=== PATIENT | female | born 1985 | race Caucasian/White ===

== ENCOUNTER 2018-04-05 09:06 | Day surgery (SDC) | payer BC ==
[~2018-04-05 09:06] MED LIST: Lactated Ringers 1,000 ML IV SCH
[2018-04-05] MEDS ORDERED: SUBLIMAZE 100 MCG/2 ML IV ONE (09:07)
[2018-04-05] MEDS ORDERED: DIPRIVAN 200 MG/20 ML IV ONE (09:07)
[2018-04-05] MEDS ORDERED: Versed 2 MG/2 ML Injection IV ONE (09:07)
[2018-04-05] MEDS ORDERED: Lactated Ringers 1,000 ML IV ONE (09:19)
[2018-04-05] MEDS ORDERED: Sensorcaine 0.25% 10 ML ONE (09:22)
[2018-04-05] MEDS ORDERED: Lactated Ringers 0 ML IV ONE (09:23)
[2018-04-05] MEDS ORDERED: XYLOCAINE 1% HCL 20 ML MDV ONE (09:26)
--- NOTE | 2018-04-05 09:54 | HP ---
DATE OF SURGERY: 04/05/2018 HISTORY OF PRESENT ILLNESS: The patient is a 33 year-old who has had a nodule or cyst going on for five years now increasing in size, looks infected now, warmth, now increasing in size. She desires excision. PAST MEDICAL HISTORY: She denies any chronic illnesses although she does take Adderall PRN. PAST SURGICAL HISTORY: [place] teeth. Breast reduction in the past. Mucocele on her lip. MEDICATIONS: ALLERGIES: NKDA. FAMILY HISTORY: Negative. SOCIAL HISTORY: No smoking. Rare alcohol use. REVIEW OF SYSTEMS: Twelve systems reviewed per admission assessment. No chest pain or palpitations other systems negative or noncontributory as above and per preadmission questionnaire. PHYSICAL EXAMINATION: GENERAL: No acute distress. HEENT: Sclerae nonicteric. NECK: No JVD. Cyst or nodule right side of her neck. CHEST: Equal excursion, nonlabored breathing. CVS: Regular rate and rhythm. ABDOMEN: Soft. No peritoneal signs. EXTREMITIES: No significant edema. NEURO: Alert, oriented, moving extremities symmetrically. No gross motor deficits noted. IMPRESSION: Cyst or nodule on the right side of her neck. She desires excision. Risks and benefits explained in detail including but not limited to bleeding or infection, risk of wound dehiscence possibly requiring packing, likely what we excise will not recur once she heals the wound but she could get a similar cyst or nodule adjacent to or elsewhere on her neck or body. She understands the general risk of anesthesia sedation, deep venous thrombosis, pulmonary embolism or pneumonia but not limited to. We will proceed with excisional biopsy of right cyst or nodule as an outpatient.
[2018-04-05 13:31] VITALS: O2SAT 100
[2018-04-05 14:04] VITALS: BP 131/65; PULSE 80
--- NOTE | 2018-04-05 14:53 | OP ---
SURGERY DATE/TIME: 04/05/2018 1229 PREOPERATIVE DIAGNOSIS: Enlarging neck cyst or nodule. POSTOPERATIVE DIAGNOSIS: Enlarging neck cyst or nodule. PROCEDURE: Excisional biopsy right neck cyst approximately 1.2 cm with margins with intermediate closure. SURGEON: Dr. Montana Jay. SAP HANA DEVELOPER: Clarence Barry, Medical Student III. ANESTHESIA: MAC with local 1% lidocaine. ESTIMATED BLOOD LOSS: Minimal. INDICATIONS: As noted above. Risks and benefits explained in detail and not limited to and consent obtained. The site is confirmed in the preoperative holding area. DESCRIPTION OF PROCEDURE AND FINDINGS: He is taken to the operating room. MAC anesthesia introduced. The neck is prepped and draped in usual sterile fashion. After official time out and no disagreement with planned procedure, including the small rim of skin over the top which is felt to possibly contact a pit. Dissection is carried down circumferentially on what appeared to be an epidural inclusion cyst dissecting it down to the underlying subcutaneous tissue and fascia. Slowly and carefully shelled out and measured approximately 1.2 cm. The underlying tissue appeared fine. There did not appear to be any evidence of any cyst wall or cyst material left in the wound. Hemostasis controlled with some pinpoint cautery. The wound is then closed in intermediate fashion with interrupted 4-0 Vicryl closing the subcu and the dermis. Skin closed with running subcuticular 5-0 Prolene to the fascia. Steri-Strips and sterile dressing applied. The patient tolerated the procedure well. There were no immediate complications. Findings discussed with the family in the waiting area. She was transferred to recovery in stable condition.
== END 2018-04-05 14:10 | disposition home or self-care (01) ==
LOC: SDC 09:06
PROVIDERS: ATTEND Surgery
DX: L72.0 Epidermal cyst (principal); R22.1 Localized swelling, mass and lump, neck; R20.8 Other disturbances of skin sensation
CPT/HCPCS: 84703; 94250; J2250; J2704; J3010

== ENCOUNTER 2019-04-12 15:38 | Emergency (ER) | payer BC, OTHER ==
--- NOTE | 2019-04-12 16:16 | ERPHSYRPT ---
- History of Present Illness Time Seen by Provider: 04/12/19 16:00 Source: patient, family Patient Subjective Stated Complaint: states was making a home visit today through [facility] and was bit by a dog on left hip. Triage Nursing Assessment: ambulated to room per self. skin w/d, color normal, resp easy. has abrasion to left hip with small bite marco antonio. no bleeding noted. Physician History: 34 y/o white female whose tetanus is utd was bitten by a dog whose immunization status is unknown. 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 Timing/Duration: today Quality: painful (mildly) Location: extremities (left upper outer thigh) Possible Causes: other (dogbite) Allergies/Adverse Reactions: No Known Drug Allergies Allergy (Verified 04/12/19 15:56) Home Medications: Dextroamphetamine/Amphetamine [Adderall 20 mg Tablet] 20 mg PO DAILY PRN PRN [History] Hx Tetanus, Diphtheria Vaccination/Date Given: Yes Hx Influenza Vaccination/Date Given: Yes Hx Pneumococcal Vaccination/Date Given: No - Review of Systems Constitutional: No Symptoms Eyes: No Symptoms Ears, Nose, & Throat: No Symptoms Respiratory: No Symptoms Cardiac: No Symptoms Abdominal/Gastrointestinal: No Symptoms Genitourinary Symptoms: No Symptoms Musculoskeletal: No Symptoms Skin: Other (superficial dog bite to left upper outer thigh ) Neurological: No Symptoms Psychological: No Symptoms Endocrine: No Symptoms Hematologic/Lymphatic: No Symptoms Immunological/Allergic: No Symptoms All Other Systems: Reviewed and Negative - Past Medical History Pertinent Past Medical History: Yes Neurological History: No Pertinent History ENT History: No Pertinent History Cardiac History: No Pertinent History Respiratory History: Other Endocrine Medical History: No Pertinent History Musculoskeletal History: No Pertinent History GI Medical History: GERD History: No Pertinent History Psycho-Social History: Attention Deficit Disorder Female Reproductive Disorders: No Pertinent History Other Medical History: excercise induced asthma in the past. seasonal allergies - Past Surgical History Past Surgical History: Yes Neuro Surgical History: No Pertinent History Cardiac: No Pertinent History Respiratory: No Pertinent History Gastrointestinal: No Pertinent History, Colon Resection Genitourinary: No Pertinent History Musculoskeletal: No Pertinent History Female Surgical History: No Pertinent History Other Surgical History: breast reduction 2 years ago. wisdom teeth. mucus seal to lower lip - Social History Smoking Status: Never smoker Exposure to second hand smoke: No Drug Use: none Patient Lives Alone: No - Female History Hx Now: No - Nursing Vital Signs Nursing Vital Signs: Initial Vital Signs Temperature 98.8 F 04/12/19 15:42 Pulse Rate 92 H 04/12/19 15:42 Respiratory Rate 16 04/12/19 15:42 Blood Pressure 123/61 04/12/19 15:42 O2 Sat by Pulse Oximetry 95 04/12/19 15:42 Pain Scale Pain Intensity 3 - Physical Exam General Appearance: no apparent distress, alert Eye Exam: PERRL/EOMI, eyes nml inspection Ears, Nose, Throat Exam: normal ENT inspection, moist mucous membranes Neck Exam: normal inspection, non-tender, supple, full range of motion Respiratory Exam: normal breath sounds, lungs clear, airway intact, No chest tenderness, No respiratory distress Gastrointestinal/Abdomen Exam: No tenderness Pelvic Exam: not done Rectal Exam: not done Extremity Exam: normal range of motion, pelvis stable Neurologic Exam: alert, oriented x 3, cooperative, 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 no ointments lotions or creams. follow up with [facility] tomorrow for further instructions, including finding out immunization status of dog and need for rabies vaccination. Prescriptions: Amoxicillin/Potassium Clav [Augmentin 500-125 Tablet] 1 each PO BID #10 tablet
[2019-04-12 16:38] VITALS: BP 113/77; PULSE 84; O2SAT 99
== END 2019-04-12 16:38 | disposition home or self-care (01) ==
LOC: ED 15:38
DX: S70.312A Abrasion, left thigh, initial encounter (principal); S71.132A Puncture wound without foreign body, left thigh, initial encounter; W54.0XXA Bitten by dog, initial encounter
CPT/HCPCS: 99283

== ENCOUNTER 2020-12-24 10:02 | Day surgery (SDC) | payer BC ==
--- NOTE | 2020-12-24 08:27 | HP ---
DATE OF SURGERY: 12/24/2020 HISTORY OF PRESENT ILLNESS: The patient is a 35 year-old with dull ache right side and a little bit of nausea. Ultrasound showed some sludge. It was felt she had acute exacerbation of chronic cholecystitis, biliary colic and symptomatic biliary sludge. Hepatitis screen was negative. She just had slight elevation in her liver function test. There is question that she is passing sludge. PAST MEDICAL HISTORY: She denies any chronic illnesses. PAST SURGICAL HISTORY: Cyst or node biopsy in the past in her neck. MEDICATIONS: Includes Adderall, Tri-Sprintec. ALLERGIES: NKDA. FAMILY HISTORY: Hypertension. Diabetes. SOCIAL HISTORY: Denies smoking. REVIEW OF SYSTEMS: Fourteen systems reviewed per preadmission questionnaire. PHYSICAL EXAMINATION: GENERAL: No acute distress. HEENT: Sclerae nonicteric. NECK: No JVD. CHEST: Equal excursion, nonlabored breathing. CVS: Regular rate and rhythm. ABDOMEN: Soft. No peritoneal signs. She had some tenderness in the right side. EXTREMITIES: No significant edema. NEURO: Alert, oriented, moving extremities symmetrically. PSYCH: Appropriate mood and affect. IMPRESSION: Symptomatic acute exacerbation of biliary colic, chronic cholecystitis, biliary sludge, possibly passing sludge, possibly causing slight elevation of liver function test. I feel she will benefit from laparoscopic cholecystectomy to reduce the risk of future problems. Risks and benefits explained in detail including but not limited to bleeding or infection, risk of trocar injury or hernia, risk of bowel, bladder or blood vessel injury, risk of bile leak, bile duct injury, retained stone or sludge possibly requiring further procedure either open or ERCP, general risk of anesthesia, deep venous thrombosis, pulmonary embolism, pneumonia, perioperative risk of aches, pains, bloating, constipation and/or loose stools possibly even chronic in nature. She understands possibly this procedure may not improve her symptoms and se may need further work up and/or testing, endoscopy, other studies or procedures. She understands and agrees to the planned procedure, will proceed with outpatient laparoscopic cholecystectomy with possible open.
[~2020-12-24 10:02] MED LIST changes: +Lactated Ringers 1,000 ML IV ONE; +MEFOXIN 2 GM PREMIX** 2 GM/50 ML ML IV SCH; +Sensorcaine 0.25% 10 ML ONE
[2020-12-24] MEDS ORDERED: MEFOXIN 2 GM PREMIX** 2 GM/50 ML ML IV ONE (10:10)
[2020-12-24] MEDS ORDERED: Lactated Ringers 1,000 ML IV ONE (10:11)
[2020-12-24] MEDS ORDERED: TORAdol 30 mg Injection ONE (10:17)
[2020-12-24] MEDS ORDERED: BRIDION 200MG/2ML IV ONE (10:17)
[2020-12-24] MEDS ORDERED: SUBLIMAZE 100 MCG/2 ML ONE ×2 (10:17→12:37)
[2020-12-24] MEDS ORDERED: Zemuron 100 MG/10 ML ONE (10:17)
[2020-12-24] MEDS ORDERED: Zofran 4 MG/2 ML VIAL ONE (10:17)
[2020-12-24] MEDS ORDERED: DIPRIVAN 200 MG/20 ML IV ONE (10:17)
[2020-12-24] MEDS ORDERED: Xylocaine-Mpf 2% 5 Ml Vial ONE (10:17)
[2020-12-24] MEDS ORDERED: Decadron 4 MG INJ ONE (10:17)
[2020-12-24] MEDS ORDERED: Compazine 10 MG/2 ML ONE (13:10)
[2020-12-24 13:36] VITALS: O2SAT 100
[2020-12-24] MEDS ORDERED: NORCO 5/325 MG PO PRN (14:01)
[2020-12-24 15:30] VITALS: BP 122/78; PULSE 80
--- NOTE | 2020-12-25 08:11 | OP ---
SURGERY DATE/TIME: 12/24/2020 1200 PREOPERATIVE DIAGNOSIS: Acute exacerbation of chronic cholecystitis, symptomatic biliary sludge. POSTOPERATIVE DIAGNOSIS: Acute exacerbation of chronic cholecystitis, symptomatic biliary sludge. PROCEDURE: Laparoscopic cholecystectomy. SURGEON: Dr. Montana Jay. INVESTMENT SALES ASSISTANT: Richmond Amaya, medical student III. ANESTHESIA: General. ESTIMATED BLOOD LOSS: Minimal. INDICATIONS: As noted above. Risks and benefits explained in detail but not limited to and consent obtained. DESCRIPTION OF PROCEDURE AND FINDINGS: The patient was taken to the operating room. General anesthesia induced. Abdomen prepped and draped in the usual sterile fashion. After official time out and no disagreement with planned procedure, a transverse incision made at the infraumbilical area as she had a supraumbilical piercing. Fascia grasped and pulled upward. Veress needle inserted and tested with saline. Pneumoperitoneum accomplished insufflating opening pressure of 0-15. A 5 mm bladeless port and camera inserted without difficulty in the right upper quadrant. There is no evidence of any intra-abdominal injury secondary to trocar insertion. A small amount CO2 insufflated in the extra peritoneal space. There were no issues with the Veress needle placement intra-abdominally. The 10/11 port was placed in the infraumbilical side and another right upper quadrant 5 mm port as well as 5 mm epigastric port. The gallbladder grasped and retracted over the edge of the liver. It had some chronic inflammatory reaction. Dissection carried posterior, lateral to anterior fashion. Slowly and carefully cystic duct and infundibular area slowly and carefully well skeletonized until the critical view obtained both anteriorly and posteriorly. Once this was accomplished the cystic duct and cystic artery were clipped x3 and divided in the usual fashion. Gallbladder was vascular requiring clipping additional oozing side branches off the cystic artery/cystic vein directly on the gallbladder wall as necessary. Gallbladder is slowly and carefully dissected free from its dense attachment to the liver bed. It was a thin walled gallbladder. Just grasping it with a grasper some small, little seepage of bile from the gallbladder. There was no evidence of any visible stone or sludge spillage. Just prior to releasing from final attachments to the anterior edge of the liver, the liver bed re-inspected. Clips noted in place cystic duct and cystic artery stumps. The common duct had been well visualized and avoided. Gallbladder released from final attachments to anterior edge of the liver, placed in the provided sac by the hospital, pulled up in the infraumbilical 10/11 port site slightly enlarging the fascial defect with a clamp. The bag and gallbladder were pulled free and passed off. The fascial defect closed with puncture closure device with #1 Vicryl. After first inspecting the liver bed one last time, clips noted in place in cystic duct and cystic artery stumps. No signs of any active bleeding or bile leakage. It was felt there was no benefit from drain placement. Pneumoperitoneum decompressed. The wound irrigated out. Skin incision closed with 4-0 Vicryl. Steri-Strips and sterile dressing applied. 0.25% Marcaine local injected along the skin incision fascial defect. The patient tolerated the procedure well. There were no immediate complications. Findings discussed with the family out in the waiting area.
== END 2020-12-24 15:05 | disposition home or self-care (01) ==
LOC: SDC 10:02
PROVIDERS: ATTEND Surgery
DX: K81.2 Acute cholecystitis with chronic cholecystitis (principal); K83.8 Other specified diseases of biliary tract
CPT/HCPCS: 84703; 88304; J0694; J1100; J1885; J2405; J2704; J3010; A9270-GY